=== PATIENT | female | born 1945 | race Caucasian/White ===

== ENCOUNTER 2017-07-26 07:17 | Day surgery (SDC) | payer MEDICARE ==
[~2017-07-26 07:17] MED LIST: ACETAMINOPHEN 325 MG TAB PO; MIDAZOLAM INJ 2 MG/2 ML VIAL (J2250) As Ordered; PHENYLEPHRINE HCL 10 % OPHTH. SOL 5ML OD; PROPARACAINE 0.5% OPHTH SOL 15ML OD; fentaNYL 100 MCG/2 ML INJECTION (J3010) As Ordered
[2017-07-26] MEDS ORDERED: TROPICAMIDE 1% OPHTH SOLN 2ML As Ordered (07:38)
[2017-07-26] MEDS ORDERED: OFLOXACIN 0.3 % (OCUFLOX) OPTH SOL 5ML As Ordered (07:38)
[2017-07-26] MEDS ORDERED: PHENYLEPHRINE 2.5% OPHTH SOL 2ML As Ordered (07:38)
[2017-07-26] MEDS ORDERED: CYCLOPENTOLATE 2% OPHTH SOLN 2ML BTL As Ordered (07:38)
[2017-07-26] MEDS: OFLOXACIN 0.3 % (OCUFLOX) OPTH SOL 5ML OD (07:51)
[2017-07-26] MEDS: LIDOCAINE 3.5 % 1ML OPHTH TOPICAL GEL OU (07:52)
[2017-07-26] MEDS: PHENYLEPHRINE 2.5% OPHTH SOL 2ML OD (07:52)
[2017-07-26] MEDS: CYCLOPENTOLATE 2% OPHTH SOLN 2ML BTL OD (07:52)
[2017-07-26] MEDS: TROPICAMIDE 1% OPHTH SOLN 2ML OD (07:52)
[2017-07-26] MEDS: HEALON DUET (HEALON 10MG/ML 0.55ML & HEALON ENDOCOAT 30MG/ML 0.85ML) As Ordered (08:45)
[2017-07-26] MEDS: CEFUROXIME 1MG/0.1ML INTRACAMERAL INJ As Ordered (08:45)
[2017-07-26] MEDS: LIDOCAINE 1% SDV 5 ML VIAL As Ordered (08:45)
[2017-07-26] MEDS: POVIDONE-IODINE 5% OPHTH PREP SOL 30ML As Ordered (08:45)
[2017-07-26] MEDS: BALANCED SALT IRRIGATION SOLUTION 500ML BAG (FOR OR EYE MACHINE) As Ordered (08:46)
[2017-07-26] MEDS ORDERED: TRIMETHOBENZAMIDE 300 MG CAP PO (09:00)
[2017-07-26] MEDS: AcetaZOLAMIDE 500 MG ER CAP PO (09:28)
[2017-07-26] MEDS: KETOROLAC 0.5% OPHTH SOLN OD (09:28)
== END 2017-07-26 09:47 | disposition home or self-care (01) ==
LOC: M SDC 07:17
DX: H25.11 Age-related nuclear cataract, right eye (principal); E78.5 Hyperlipidemia, unspecified; K21.9 Gastro-esophageal reflux disease without esophagitis; Z87.891 Personal history of nicotine dependence; Z79.899 Other long term (current) drug therapy
CPT/HCPCS: 66984

== ENCOUNTER → 2020-01-29 | Outpatient (REF) | payer MEDICARE ==
[~2020-01-29] MED LIST changes: -ACETAMINOPHEN 325 MG TAB PO; +ATOR40TA75 PO; +CARI250T PO; +CITA20TA6 PO; +CITR500T PO; +COQ-100C2 PO; +CRAN600T PO; +DEXI30CA2 PO; +ESTR62CR PV; +FLUT1LOT EX; +FLUTISP; +MELA3TAB49 PO; -MIDAZOLAM INJ 2 MG/2 ML VIAL (J2250) As Ordered; +MULT1TAB10 PO; -PHENYLEPHRINE HCL 10 % OPHTH. SOL 5ML OD; -PROPARACAINE 0.5% OPHTH SOL 15ML OD; +SUCR1ORA PO; +TURM500C PO; +ZANT150T15 PO; +[UNRECOGNIZED DRUG - CODE] PO; -fentaNYL 100 MCG/2 ML INJECTION (J3010) As Ordered
== END ==
LOC: M LAB REF 19:05
PROVIDERS: ATTEND Physician Assistant
DX: D22.72 Melanocytic nevi of left lower limb, including hip (principal)
CPT/HCPCS: 11102; 17110; 88305; G0463